=== PATIENT | male | born 1960 ===

== ENCOUNTER 2024-07-11 08:24 | Outpatient (CLI) | payer BC, SELFPAY | END 2024-07-11 08:25 | disposition home or self-care (01) | PROVIDERS: PCP Family Medicine; Visit Provider Family Medicine | DX: Z13.228 Encounter for screening for other metabolic disorders (principal); Z13.6 Encounter for screening for cardiovascular disorders | CPT/HCPCS: 80053; 80061 ==

== ENCOUNTER 2025-01-29 12:18 | Emergency (ER) | payer BC, SELFPAY ==
[2025-01-29] VITALS (8 sets, daily range): BP systolic 126–155; BP diastolic 82–95; PULSE 59–72; RESP 6–17; TEMP 36.6; O2SAT 91–99; BMI 27.6
--- OUTSIDE RECORDS SUMMARY | 2025-01-29 12:20 | XMS_ITS | Clinical Summary ---
Author Organization [employer] [facility] Address [address] [place] [id number] Care Team Providers Care Clerk Supervisor Name Role Phone Gustavo Ca MD Primary Care Provider [phone] Allergies No known active allergies Medications Ascorbic Acid (VITAMIN C ER) 1000 MG tablet controlled-rele ase Take 2,000 mg by mouth daily 09/11/2013 Active naproxen sodium (ALEVE) 220 MG tablet Take 2 tablets (440 mg total) by mouth daily Active omeprazole (PriLOSEC) [address] capsule Take 1 capsule (20 mg total) by mouth daily Active Active Problems Problem Noted Date Diagnosed Date Neuropathy 07/19/2021 Gastroesophageal reflux disease 09/29/2018 Immunizations Immunization Administration Dates Next Due DT 11/12/1986 MMR 10/27/1989 TD Preservative Free 03/19/1997 Td 03/19/1997 Tdap 09/14/2018 Family History Medical History Relation Comments Colon polyps Father Diabetes Father Lung cancer Father Heart disease Mother Diabetes Sister Relation Status Comments Brother Alive Daughter Alive Father Mother Alive Sister Alive Son 1 Alive Son 2 Alive Social History Tobacco Use Types Packs/Day Years Used Date Smoking Tobacco: Former Cigarettes Q uit: 2001 Smokeless Tobacco: Never Comments:+ cigarettes 1 ppd age 16 quit June 2001 Alcohol Use Standard Drinks/Week Comments Yes 2 (1 standard drink = 0.6 oz pur e alcohol) B1300 Health Literacy Answer Date Recor ded How often do you need to hav e someone help you when you read instructions, pamphlets, or other written material from your doctor or pharmacy? Rarely 03/28/2024 [facility] Utilities Answer Date Recorded In the past 12 months has [employer], oil, or water [employer] threatened to shut off services in your home? No 03/28/2024 Social Connection and Isolation Panel Answer Date Recorded In a typical week, how many times do you talk on the phone with family, friends, or neighbors? More than three times a week 03/28/2024 How often do you get togethe r with friends or relatives? Once a week 03/28/2024 How often do you attend chur or anabaptism services? Patient declined 03/28/2024 Do you belong to any clubs o r organizations such as sikh groups, unions, fraternal or athletic groups, or school groups? No 03/28/2024 How often do you attend meet ings of the clubs or organizations you belong to? Never 03/28/2024 Are you , , di vorced, , never , or living with a partner? 03/28/2024 AUDIT-C Answer Date Recorded Q1: How often do you have a drink containing alc ohol? Monthly or less 03/28/2024 Q2: How many drinks containi ng alcohol do you have on a typical day when you are drinking? 1 or 2 03/28/2024 Q3: How often do you have si x or more drinks on one occasion? Never 03/28/2024 Overall Financial Resource Strain (CARDIA) Answe r Date Recorded How hard is it for you to pa y for the very basics like food, housing, medical care, and heating? Not very hard 03/28/2024 PHQ-2 Answer Date Recorded PHQ-9 Total Score 2 03/28/2024 [facility] - Occupational Stress Questionnaire Answer Date Recorded Do you feel stress - tense, restless, nervous, or anxious, or unable to sleep at night because your mind is troubled all the time - these days? Rather much 03/28/2024 Exercise Vital Sign Answer Date Recorde d On average, how many days pe r week do you engage in moderate to strenuous exercise (like a brisk walk)? 4 days 03/28/2024 On average, how many minutes do you engage in exercise at this level? 10 min 03/28/2024 Hunger Vital Sign Answer Date Recorded Within the past 12 months, y ou worried that your food would run out before you got the money to buy more. Never true 03/28/19 25 Within the past 12 months, t he food you bought just didn't last and you didn't have money to get more. Never true 03/28/2024 PRAPARE - Transportation Answer Date Re corded In the past 12 months, has l ack of transportation kept you from medical appointments or from getting medications? No 09/2024 In the past 12 months, has l ack of transportation kept you from meetings, work, or from getting things needed for daily living? No 03/28/2024 Housing Stability Vital Sign Answer Stu e Recorded In the last 12 months, was t here a time when you were not able to pay the mortgage or rent on time? No 03/28/2024 Number of Times Moved in the Last Year Not on fi le 03/28/2024 At any time in the past 12 m [facility], were you homeless or living in a half-way (including now)? No 03/28/2024 Education Answer Date Recorded What is the highest level of school you have completed or the highest degree you have received? Associate degree: occupational, technical, or vocational program 09/12/2018 Sex and Gender Information Value Date Recorded Sex Assigned at Not on file Legal Sex Male 7:40 PM CDT Gender Identity Not on file Sexual Orientation Not on file Occupation Industry Job Start Date Job End Date [employer] Not on file Not on file Not o n file Last Filed Vital Signs Vital Sign Reading Time Taken Comments Blood Pressure 183/105 03/28/2024 9:02 AM UPHOLSTERY TRIMMER Pulse 101 03/28/2024 8:56 AM UPHOLSTERY TRIMMER Temperature 37 C (98.6 F) 03/28/2024 8:56 AM UPHOLSTERY TRIMMER Respiratory Rate 14 03/28/2024 8:56 AM UPHOLSTERY TRIMMER Oxygen Saturation 97% 03/28/2024 8:56 AM UPHOLSTERY TRIMMER Inhaled Oxygen Concentration - - Weight 94.3 kg (208 lb) 03/28/2024 8:56 AM UPHOLSTERY TRIMMER Height 180.3 cm (5' 11) 03/28/2024 8:56 AM UPHOLSTERY TRIMMER Body Mass Index 29.01 03/28/2024 8:56 AM UPHOLSTERY TRIMMER Plan of Treatment Health Maintenance Due Date Last Done Comments CT Colonography 1960 FIT-DNA 1960 Sigmoidoscopy 1960 iFOBT 1960 Pneumococcal Vaccine: 50+ Years (1 of 1 - PCV) 2010 Zoster Vaccines (1 of 2) 2010 Colonoscopy 10/07/2023 10/06/2018, 10/06/2018 Colorectal Cancer Screening 10/07/2023 COVID-19 Vaccine (1 - 2023- season) 2024 Influenza Vaccine (#1) 2024 DTaP,Tdap,and Td Vaccines (2 - Td or Tdap) 09/14/2028 09/14/2018, 03/19/1997, 03/19/1997, Additional history exists HPV Vaccines Aged Out No longer eligi ble based on patient's age to complete this topic Procedures Procedure Name Priority Date/Time Associated Diagnosis Comments COLONOSCOPY Routine 10/06/2018 from Last 3 Months or Most Recently Relevant to Health Maintenance Results * Colonoscopy (10/06/2018) [facility] Signature Colonoscopy Completed at [facility]. Repeat 5 years per report. Historical Provider HEALTH MAINTENANCE Final Result from Last 3 Months or Most Recently Relevant to Health Maintenance Insurance [facility] Care Teams Clerk Supervisor Relationship Specialty Start Date End Date Gustavo Ca MD [address] [place] [address] PCP - General 01/07/23
--- OUTSIDE RECORDS SUMMARY | 2025-01-29 12:20 | XMS_ITS | Clinical Summary ---
Author Organization [employer] Address [address] [place] [id number] Care Team Providers Care Automotive Starter Repairer Name Role Phone Pcp, No Primary Care Provider Unavailabl e Allergies No known active allergies Medications cetirizine HCl/pseudoephedr ine (ZYRTEC-D ORAL) Take by mouth. Active naproxen (ALEVE) 220 mg tablet Take 440 mg by mouth one time. Active omeprazole (PRILOSEC) 20 mg Delayed-Release capsule Take 20 mg by mouth once daily. Active Social History Tobacco Use Types Packs/Day Years Used Date Smoking Tobacco: Never Assessed Sex and Gender Information Value Date Recorded Sex Assigned at Not on file Legal Sex Male 9:47 AM CDT Gender Identity Not on file Sexual Orientation Not on file Last Filed Vital Signs Vital Sign Reading Time Taken Comments Blood Pressure 174/98 10/16/2024 10:01 AM CDT Pulse 64 10/16/2024 10:01 AM CDT Temperature 36.5 C (97.7 F) 10/16/2024 10:01 AM CDT Respiratory Rate 14 10/16/2024 10:01 AM CDT Oxygen Saturation 97% 10/16/2024 10:01 AM CDT Inhaled Oxygen Concentration - - Weight - - Height - - Body Mass Index - - Plan of Treatment Health Maintenance Due Date Last Done Comments Tetanus booster 12/16/1971 Depression screening for age 12+ 1972 HIV for age 15-65 12/16/1975 BMI (ht and wt on same day) for age 18+ 1978 Hepatitis C screening for ag e 18-79 1978 Colonoscopy through age 75 2005 Lipids for age 45-75 2005 Pneumococcal series for age 50+ (1 of 1 - PCV) 2010 Zoster (shingles) series for age 50+ (1 of 2) 2010 Influenza Vaccine (#1) 2024 RSV vaccine for adults or (1 - 1-dose 75+ series) 12/16/2035 Hepatitis B series for 19+ Aged Out N o longer eligible based on patient's age to complete this topic Insurance [facility] Care Teams Automotive Starter Repairer Relationship Specialty Start Date End Date Pcp, No . PCP - General 10/16/24
--- NOTE | 2025-01-29 12:52 | ED.CHESTPAIN ---
HPI - Chest Pain General Date Seen: 01/29/25 Chief Complaint: Chest Pain Stated Complaint: chest pain -comes and goes Time Seen by Provider: 01/29/25 12:51 Source: patient and RN notes reviewed Mode of arrival: ambulatory Limitations: no limitations History of Present Illness HPI narrative: Jeffrey is a very pleasant 64 year old male with history of HTN, FH of early cardiac disease with interventions in mom at the age of 50, hx of GERD who comes to the ER with complaints of CP. Jeffrey noted today he has had intermittent CP in the middle of his chest, non-radiating lasting a few seconds to up to a minute. He notes CP that lasted up to 5 minutes 48 hours ago on Saturday 01/27. He notes no particular pattern such as with activity and does not have worsening pain if he is up and walking. Denies radiation. The pain seems to have been occuring at rest, mostly. It is asoociiated with SOB and patient states that is because he is an inactiver person. He denies nausea, lightheadedness. He does not smoke and ETOH is minimal. He denies any drug use. At this time he is pain free, but notes that on the waiting room, he was experienceing the pain/pressure. No recent extended car rides,airplane trips or history of DVT. Denies calf tenderness or ankle selling. Jeffrey does note significant stressors at work lately. Related Data Home Medications ?Medication ?Instructions ?Recorded ?Confirmed ascorbic acid (vitamin C) 500 mg 500 mg PO .QD 07/11/24 01/29/25 capsule cetirizine 10 mg tablet (Zyrtec) 10 mg PO QDAY PRN 07/11/24 01/29/25 naproxen sodium 220 mg capsule 440 mg PO QDAY 07/11/24 01/29/25 (Aleve) omeprazole 20 mg capsule,delayed 20 mg PO QDAY 07/11/24 01/29/25 release Previous Rx's ?Medication ?Instructions ?Recorded amlodipine 10 mg tablet 10 mg PO QDAY #90 tabs 01/29/25 Allergies Allergy/AdvReac Type Severity Reaction Status Date / Time No Known Drug Allergies Allergy Verified 01/29/25 12:30 Review of Systems Status of ROS Reports: 10 or more systems reviewed and unremarkable except as noted in History and below Const Denies: fever, chills, change in weight or fatigue Eyes Denies: change in vision ENMT Denies: throat pain, neck pain or nasal congestion Cardio Reports: chest pain and shortness of breath with exertion; Denies: palpitations, edema, swelling of feet/ankles or lightheadedness Resp Reports: shortness of breath; Denies: cough GI Denies: abdominal pain, nausea, vomiting or diarrhea Denies: painful urination Musculo Denies: back pain or neck pain Integ/Breast Denies: rash Neuro Denies: headache Endo Denies: fatigue PFSH PFS Medical History History of concussion ?Z87.820 - Personal history of traumatic brain injury (ICD-10) Surgical History History of hand surgery ?Z98.890 - Other specified postprocedural states (ICD-10) Family History Father Lung cancer Mother Heart disease S/P CABG (coronary artery bypass graft) Sister Diabetes Social History Narrative: . 3 children and multiple grandchildren. Works for [employer]. What is your current living situation?: I presently have a place to live Problems where you live: no known problems In the past 12 months, utilities in danger of being shut off: no In past 12 months, lack of transportation kept you from medical appts, meetings, work, or getting things needed for daily living: no In the past 12 mos, have been you worried that your food would run out before you had money to buy more?: never true In the past 12 mos, the food you bought just didn't last and you didn't have money to buy more?: never true Smoking Status: Never smoker How often does anyone, including family, friends and others, physically hurt you: never How often does anyone, including family, friends and others, insult or talk down to you: never How often does anyone, including family, friends and others, threaten you with harm: never How often does anyone, including family, friends and others, scream or curse at you: never service: Yes Exam Narrative Exam Narrative: Alert and oriented, Very pleasant well spoken gentleman in no acute distress. Color is good. Face symmetrical. Heart with RRR, no murmur or rub. abd soft. No pulsating mass. LE without edema Pedal pulses symmetrical. Non toxic in appearance with good color. Const Vital Signs, click to edit/add: Vital Signs - 24 hr 01/29/25 12:32 01/29/25 13:30 01/29/25 13:45 Temperature 97.8 F Pulse Rate 67 Pulse Rate [Pulse Oximeter] 72 Respiratory Rate 16 7 L 10 L Blood Pressure Blood Pressure [Right Upper Arm] 155/82 H Pulse Oximetry 99 96 Oxygen Delivery Method Room Air 01/29/25 14:00 01/29/25 14:02 01/29/25 14:15 Temperature Pulse Rate 59 L 67 61 Pulse Rate [Pulse Oximeter] Respiratory Rate 11 L 17 14 Blood Pressure 138/95 H Blood Pressure [Right Upper Arm] Pulse Oximetry 93 98 91 Oxygen Delivery Method 01/29/25 14:30 01/29/25 14:32 Temperature Pulse Rate 59 L 59 L Pulse Rate [Pulse Oximeter] Respiratory Rate 6 L 15 Blood Pressure 126/83 Blood Pressure [Right Upper Arm] Pulse Oximetry 95 97 Oxygen Delivery Method Documenting provider has reviewed patient's vital signs: yes Course Course ED Course: differential diagnosis includes but is not limited to angina, acute coronary syndrome, aortic dissection, esophogeal spasm, anxiety. Patient is agreeable to have IV placed, labs drawn (CBC, COMP, TROP,) . Will obtain ecg as well as chest xray. Pt will be placed on the cardiac technologist and oximetry. will give asa 324mg po Reevaluation(s) Reevaluation #1: Initial ECG was abnormal with q waves noted in I, II and thus I did suspect lead mixup. a second ecg was ordered which was reassuring. Reevaluation #2: Patient noted to have a few episodes of chest tightness in the ED lasting only seconds. CXR, ECG reassuring. Troponin negative. Will continue with cardiac technologist and await second troponin. Vital Signs Vital signs: Initial Vital Signs Temperature 97.8 F 01/29/25 12:32 Temperature Source Temporal Artery Scan 01/29/25 12:32 Pulse Rate 72 01/29/25 12:32 Respiratory Rate 16 01/29/25 12:32 Blood Pressure 155/82 H 01/29/25 12:32 Blood Pressure Mean 106 H 01/29/25 12:32 Pulse Oximetry 99 01/29/25 12:32 Oxygen Delivery Method Room Air 01/29/25 12:32 Vital Signs Temperature 97.8 F 01/29/25 12:32 Pulse Rate 72 01/29/25 12:32 Respiratory Rate 16 01/29/25 12:32 Blood Pressure 155/82 H 01/29/25 12:32 Pulse Oximetry 99 01/29/25 12:32 Oxygen Delivery Method Room Air 01/29/25 12:32 Temperature 97.8 F 01/29/25 12:32 Pulse Rate 59 L 01/29/25 14:32 Respiratory Rate 15 01/29/25 14:32 Blood Pressure 126/83 01/29/25 14:32 Pulse Oximetry 97 01/29/25 14:32 Oxygen Delivery Method Room Air 01/29/25 12:32 Medications Administered Medications: Discontinued Medications Generic Name Dose Route Start Last Admin Trade Name Shorty PRN Reason Stop Dose Admin Aspirin 324 mg 01/29/25 13:30 01/29/25 13:25 Aspirin 81 Mg Tab.Chew PO 01/29/25 13:31 324 mg ONCE ONE Administration MDM - Chest Pain MDM Narrative Medical decision making narrative: 1. Atypical chest pain - no evidence of widened mediastinum, acute coronary syndrome with normal ecg and troponin x 2 or electrolyte abnormality. My plan had been to try nitro to see if this completely eliminated the epidodes of discomfort. However, patient declines and wishes to go home. Does appear to understand that we don't have an explanation for his discomfort. He is agreeable to continuing aspirin daily as well as his home omeprazole. We will set up an outpatient stress test for him even though he had a normal test in 2018 and Jeffrey feels that this may be related to the significant work stress he has been experiencing. He is to return to the ER for worsening symptoms and as needed. He is instructed to limit any activity ( running, working out, sexual activity ) until he has a negative stress test. 2. Hx of Gerd - continue PPI at home 3. Disposition - home after declining further workup/interventions. Return for onset of new symptoms or wrosening of current symptoms. Medical Records Data Attestation: I reviewed the patient's medical records. Medical records narrative: From fall Lab Data Attestation: I reviewed the patient's lab results. Labs: Lab Results 01/29/25 01/29/25 Range/Units 13:30 15:00 WBC 7.36 (4.50-11.00) K/uL RBC 5.01 (4.30-5.90) m/uL Hgb 15.3 (13.5-17.5) gm/dL Hct 46.0 (37.0-53.0) % MCV 92 (80-100) fL MCH 31 (26-34) pg MCHC 33 (32-36) gm/dL RDW Coeff of Lor 12.6 (11.5-15.5) % Plt Count 228 (140-440) K/uL Neut % (Auto) 53.2 (42.0-72.0) % Lymph % (Auto) 35.6 (20-44) % [place] % (Auto) 7.5 (0.0-11.0) % Eos % (Auto) 2.6 (0.0-7.0) % Baso % (Auto) 0.8 (0.0-3.0) % Neut # (Auto) 3.92 (1.7-7.0) K/uL Lymph # (Auto) 2.62 (0.90-2.90) K/uL [place] # (Auto) 0.60 (0.00-0.90) K/UL Eos # (Auto) 0.19 (0.00-0.50) K/uL Baso # (Auto) 0.06 (0.00-0.30) K/uL Abs Immat Gran (auto) 0.02 (0.00-0.30) K/uL Imm/Tot Granulo (auto) 0.3 % Sodium 137 (135-149) mmol/L Potassium 4.3 (3.6-5.1) mmol/L Chloride 101 (96-114) mmol/L Carbon Dioxide 29 (20-32) mmol/L Anion Gap 7 (7-15) mEq/L BUN 17 (7-30) mg/dL Creatinine 0.9 (0.5-1.5) mg/dL Estimated Creat Clear 79.48 Estimated GFR 95 ml/min Glucose 87 (60-115) mg/dL Calcium 9.3 (8.4-10.6) mg/dL Total Bilirubin 1.2 (0.1-1.5) mg/dL AST 38 H (12-35) U/L ALT 25 (4-50) U/L Alkaline Phosphatase 53 (40-150) U/L Total Protein 8.2 (6.0-8.3) g/dL Albumin 4.8 (3.3-5.0) g/dL POC Troponin I 0.01 0.00 L (0.01-0.04) ng/ml Imaging Data Chest x-ray: Attestation: I have reviewed the pertinent imaging results. My impression: No evidence of widened mediastinum. No infiltrates. Radiologist's impression: No focal consolidation, pleural effusion, or pneumothorax. The cardiac silhouette is normal. Well corticated ossific density inferior to the left clavicle likely reflective of remote trauma. ECG Data Attestation: I personally reviewed and interpreted this ECG as follows: ECG interpretation date: 01/29/25 Interpretation: EKG by my read initially showed q waves and it was determined that the leads has been inaccurately applied. Second ecg shows NSR at a rate of 61. No acute st/twave changes. Normal pr interval potline monitor did not show evidence of arrhythmia Discharge Plan Discharge Clinical Impression: Atypical chest pain Patient Disposition: Home, Self-Care Condition: Unchanged Additional Instructions: We will schedule a stress test for you. Plan on receiving a phone call. Aspirin 324 mg daily Return to the ER for worsening symptoms No intense activity that would raise the heart rate. Prescriptions: No Action ascorbic acid (vitamin C) 500 mg capsule 500 mg PO .QD omeprazole 20 mg capsule,delayed release(DR/EC) 20 mg PO QDAY cetirizine [Zyrtec] 10 mg tablet 10 mg PO QDAY PRN naproxen sodium [Aleve] 220 mg capsule 440 mg PO QDAY amlodipine 10 mg tablet 10 mg PO QDAY Qty: 90 1RF Follow Up/Referrals: Art Goode MD [Primary Care Provider, Family Practice] Stand Alone [facility]: [facility] Inst[facility]
[2025-01-29] MEDS: ASPIRIN 81 MG TAB.CHEW 324 MG PO (13:25)
--- NOTE | 2025-01-29 13:26 | CRLHL7_ITS ---
For Patients: As a result of the Century Cures Act, medical imaging exams and procedure reports are released immediately into your electronic medical record. You may view this report before your referring provider. If you have questions, please contact your health care provider. Indication: Chest pain Technique: Chest 1 view. Comparison: None. Findings/Impression: No focal consolidation, pleural effusion, or pneumothorax. The cardiac silhouette is normal. Well corticated ossific density inferior to the left clavicle likely reflective of remote trauma. Dictated by Hayden Dale MD @ 01/29/2025 1:50:20 PM (Electronically Signed)
[2025-01-29 13:50] LABS: Hematocrit* 46.0 % (37.0-53.0); Hemoglobin* 15.3 gm/dL (13.5-17.5); Immature Granulocytes Abs Auto 0.02 K/uL (0.00-0.30); Immature Granulocytes Pct Auto 0.3 %; Lymphocytes Absolute Auto 2.62 K/uL (0.90-2.90); Mean Corpuscular HGB Conc 33 gm/dL (32-36); Mean Corpuscular Hemoglobin 31 pg (26-34); Mean Corpuscular Volume 92 fL (80-100); RDW Coefficient of Variation % 12.6 % (11.5-15.5); Red Blood Count* 5.01 m/uL (4.30-5.90); White Blood Count* 7.36 K/uL (4.50-11.00)
[2025-01-29 13:52] LABS: Slide Review Reflex No
[2025-01-29 13:56] LABS: Chloride* 101 mmol/L (96-114)
[2025-01-29 13:57] LABS: Albumin* 4.8 g/dL (3.3-5.0); Potassium* 4.3 mmol/L (3.6-5.1); Sodium* 137 mmol/L (135-149); Troponin, Point-of-Care* 0.01 ng/ml (0.01-0.04)
[2025-01-29 13:59] LABS: Alanine Aminotransferase* 25 U/L (4-50); Anion Gap 7 mEq/L (7-15); Aspartate Amino Transferase* 38 U/L (12-35); Blood Urea Nitrogen* 17 mg/dL (7-30); Carbon Dioxide* 29 mmol/L (20-32); Creatinine* 0.9 mg/dL (0.5-1.5); Est. Creatinine Clearance* 79.48; Estimated Glomerular Filt Rate 95 ml/min
[2025-01-29 14:00] LABS: Alkaline Phosphatase* 53 U/L (40-150); Bilirubin Total* 1.2 mg/dL (0.1-1.5); Calcium* 9.3 mg/dL (8.4-10.6); Glucose* 87 mg/dL (60-115); Total Protein* 8.2 g/dL (6.0-8.3)
[2025-01-29 15:29] LABS: Troponin, Point-of-Care* 0.00 ng/ml (0.01-0.04)
== END 2025-01-29 15:54 | disposition home or self-care (01) ==
PROVIDERS: Emergency Provider Family Medicine; PCP Family Medicine
DX: R07.89 Other chest pain (principal); R06.02 Shortness of breath
CPT/HCPCS: 36415; 71045; 80053; 84484; 85025; 93005; 99284; 99285; A9270

== ENCOUNTER 2025-02-08 14:15 | Outpatient (CLI) | payer BC, SELFPAY ==
[2025-02-08] MEDS: PERFLUTREN LIPID MICROSPHERES 2 ML VIAL IVP (15:24)
[2025-02-08 15:25] VITALS: BP 126/77; PULSE 90; RESP 16
--- NOTE | 2025-02-08 15:30 | P.STN_ITS ---
Stress Test Note Date Date Seen: 02/08/25 Date of test: 02/08/25 Providers Primary care provider: Art Goode Stress test physician: Rhonda Whitfield Stress Test Note Stress test ordered: Stress Echo Indication for test: Chest pain Stress test medicine: Definity Results discussion: Resting EKG: Sinus rhythm, 61 beats per minute. Resting blood pressure: 122/70 Stress test: Patient is consented on ordered stress test of a treadmill stress echo, he agrees to proceed. Standard Max protocol is followed. Definity was used for echo imaging. Patient exercised to 9 minutes 2nd. He stopped due to being at target heart rate and meeting exercise limits. He did not experience a ny chest pain. He had an exercise level equivalent to 10.3 Mets. He had a maximum heart rate of 152 beats per minute which was 114% of a calculated target heart rate of 133. He had a maximum blood pressure of 172/84 during exercise. Rate pressure product was 26,144. Patient had no arrhythmia, no chest pain. He did not have any diagnostic ischemic changes but there was nondiagnostic mild ST segment depression in the inferior and lateral precordial leads of V5 and V6. Again this did not meet diagnostic criteria for ischemia. The pattern however is certainly concerning for the potential of underlying ischemic disease. Need to await echo images to couple this for a full formal diagnostic. Impression: Subjectively negative, objectively negative EKG criteria for ischemia but subtle changes in the inferior and lateral precordial leads of V5 and V6 which could be suggestive of ischemia if echo is positive. Follow up suggested: Patient is discharged in stable condition. He plans to schedule a follow-up with his primary next week to get the results of the echo. Did discuss with him it may be possible
== END 2025-02-08 15:32 | disposition home or self-care (01) ==
LOC: STRESS 14:16
PROVIDERS: PCP Family Medicine; Visit Provider Family Medicine
DX: R07.9 Chest pain, unspecified (principal)
CPT/HCPCS: 93016; 93325; 93351; Q9957